=== PATIENT | male | born 2000 | race Caucasian/White ===

== ENCOUNTER 2022-04-08 15:32 | Outpatient (CLI) | payer BC, OTHER ==
--- NOTE | 2022-04-08 15:59 | XRAY Report ---
PROCEDURE: Sinus Complete INDICATIONS: NASAL OBSTRUCTION TECHNIQUE: 3 views of the sinuses were acquired. COMPARISON: None FINDINGS: Sinuses: The visualized sinuses demonstrate no air-fluid levels or mucosal thickening. The visualiz ed mastoids also appear clear. Bones: No suspicious bony lesions. Nasal septum is midline. IMPRESSION: Sinuses are clear. If concern persists, CT is recommended. Reviewed by: Sabina Palomo MD on 04/08/2022 3:57 PM PDT Approved by: Sabina Palomo MD on 04/08/2022 3:57 PM PDT Station ID: [id number]
== END 2022-04-08 15:33 | disposition home or self-care (01) ==
LOC: DI.N 15:32
PROVIDERS: ATTEND Pediatrics
DX: J34.89 Other specified disorders of nose and nasal sinuses (principal)